=== PATIENT | male | born 1935 | race Caucasian/White ===

== ENCOUNTER 2016-07-02 08:39 | Inpatient (IN) | payer MEDICARE, OTHER ==
[~2016-07-02 08:39] MED LIST: ALDACTONE25 M1 PO; ALDACTONE25 MG PO; ALENDRONATE SOD70 MG PO; ALEVE220 M1 PO; ALEVE220 MG; ASPIR 8181 MG; ASPIRIN LOW STR81 MG PO; ASPIRIN81 M1 PO; AZATHIOPRINE50 MG PO; CALCIUM 600 +1 EAC2 PO; CALCIUM 600 MG1 EACH PO; CARVEDILOL6.25 MG PO; CENTRUM COMPLE1 EACH PO; CENTRUM SILVER1 TAB PO; COREG3.125 MG; COREG6.25 M1 PO; COUMADIN2.5 M1 PO; COUMADIN2.5 MG PO; FOSAMAX70 MG PO; IMURAN50 MG; IMURAN50 MG PO; LEVAQUIN750 MG PO; LISINOPRIL5 MG; LISINOPRIL5 MG PO; LOVENOX80 MG/0.8 SQ; NAPROXEN250 MG PO; NORCO 5/3251 TAB PO; OMEPRAZOLE20 M2 PO; OMEPRAZOLE20 MG; OMEPRAZOLE20 MG PO; PREDNISONE10 MG; PREDNISONE10 MG PO; PREDNISONE5 M1 PO; TUMS500 MG; TYLENOL325 MG PO; ZESTRIL5 M1 PO; ZETIA10 M1 PO; ZETIA10 MG; ZETIA10 MG PO
[2016-07-02 09:25] LABS: INR 2.7 INR (0.9-1.1); PROTHROMBIN TIME 32.3 SECONDS (9.0-13.6)
[2016-07-02 09:28] LABS: BASO % 0.4 % (0-2); EOSINOPHIL ABSOLUTE COUNT 0.2 tho/cmm (0.0-0.7); HCT-HEMATOCRIT 34.1 % (36.0-53.5); HGB-HEMOGLOBIN 11.3 gm/dl (13.5-17.0); IMMATURE GRANULOCYTES ABSOLUTE 0.07 tho/cmm (0-0.03); IMMATURE GRANULOCYTES PERCENT 1.3 % (0-0.3); LYMPH % 14.6 % (20-45); LYMPH ABSOLUTE COUNT 0.8 tho/cmm (0.8-4.5); MCH (MEAN CORPUSCULAR HGB) 34.6 pg (28.0-32.0); MCHC MEAN CORPUSCULAR HGB CONC 33.1 % (32.0-36.0); MCV (MEAN CELL VOLUME) 104.3 fl (82.0-96.0); MONO % 15.3 % (0-12); MONOCYTE ABSOLUTE COUNT 0.9 tho/cmm (0.0-1.2); NEUTROPHIL ABSOLUTE COUNT 3.6 tho/cmm (1.6-8.0); NEUTROPHIL-AUTOMATED 3.6 tho/cmm (1.6-8.0); NEUTROPHILS % 64.4 % (40-80); PLATELET COUNT 168 tho/cmm (150-450); RED BLOOD COUNT 3.27 mil/cmm (4.40-5.70); RED CELL DISTRIBUTION WIDTH 16.1 % (12.4-16.4); WHITE BLOOD COUNT 5.5 tho/cmm (4.0-10.0)
[2016-07-02 09:46] LABS: ALB/GLOB RATIO 0.8 (0.8-2.0); ALBUMIN 3.3 g/dl (3.5-5.0); ALKALINE PHOSPHATASE 55 U/L (33-138); ALT/SGPT 24 U/L (12-78); ANION GAP 16 mmol/L (0-20); AST/SGOT 28 U/L (10-40); BILIRUBIN,TOTAL 0.5 mg/dl (0.0-1.5); BLOOD UREA NITROGEN 20 mg/dl (6-24); CALCIUM 8.5 mg/dl (8.5-10.5); CARBON DIOXIDE-VENOUS 20 mmol/L (22-32); CHLORIDE 111 mmol/l (96-110); CREATININE 0.82 mg/dl (0.60-1.30); GLUCOSE 77 mg/dL (70-110); POTASSIUM 4.4 mmol/L (3.7-5.1); SODIUM 143 mmol/L (135-145); eGFR VALUE FOR BLACK >90 mL/Min
[2016-07-02 10:06] LABS: PROCALCITONIN 0.14 ng/ml (0.05-0.09)
[2016-07-02 10:07] LABS: URINE APPEARANCE CLEAR; URINE BILIRUBIN NEGATIVE (NEG); URINE BLOOD MODERATE (NEG); URINE COLOR YELLOW; URINE GLUCOSE (UA) NEGATIVE (NEG); URINE KETONE MODERATE (NEG); URINE LEUKOCYTE ESTERASE NEGATIVE (NEG); URINE NITRITE NEGATIVE (NEG); URINE PROTEIN MODERATE (NEG); URINE SPECIFIC GRAVITY 1.015 (1.003-1.030)
[2016-07-02 10:16] LABS: URINE EPITHELIAL CELLS 0 /[HPF] (0-10); URINE WBC RARE /[HPF] (0-5)
[2016-07-02 10:54] LABS: AMYLASE 85 U/L (20-90); LIPASE 187 U/L (73-393)
[2016-07-02 14:05] LABS: C-REACTIVE PROTEIN 8.3 mg/dl (0-0.9)
[2016-07-02 14:09] LABS: TSH-THYROID STIMULATING HORM. 0.79 uIU/ml (0.40-3.80)
[2016-07-03 07:00] LABS: INR 2.5 INR (0.9-1.1); PROTHROMBIN TIME 30.4 SECONDS (9.0-13.6)
[2016-07-03 07:05] LABS: BASO % 0.3 % (0-2); EOS % 1.4 % (0-7); EOSINOPHIL ABSOLUTE COUNT 0.1 tho/cmm (0.0-0.7); HCT-HEMATOCRIT 30.3 % (36.0-53.5); HGB-HEMOGLOBIN 10.1 gm/dl (13.5-17.0); IMMATURE GRANULOCYTES ABSOLUTE 0.07 tho/cmm (0-0.03); LYMPH % 27.1 % (20-45); MCH (MEAN CORPUSCULAR HGB) 34.1 pg (28.0-32.0); MCHC MEAN CORPUSCULAR HGB CONC 33.3 % (32.0-36.0); MCV (MEAN CELL VOLUME) 102.4 fl (82.0-96.0); MEAN PLATELET VOLUME 9.9 cmc (9.4-12.4); MONO % 11.5 % (0-12); MONOCYTE ABSOLUTE COUNT 0.4 tho/cmm (0.0-1.2); NEUTROPHIL ABSOLUTE COUNT 2.1 tho/cmm (1.6-8.0); NEUTROPHIL-AUTOMATED 2.1 tho/cmm (1.6-8.0); NEUTROPHILS % 57.7 % (40-80); PLATELET COUNT 142 tho/cmm (150-450); RED BLOOD COUNT 2.96 mil/cmm (4.40-5.70); WHITE BLOOD COUNT 3.6 tho/cmm (4.0-10.0)
[2016-07-03 07:06] LABS: ANION GAP 16 mmol/L (0-20); BLOOD UREA NITROGEN 16 mg/dl (6-24); CALCIUM 7.6 mg/dl (8.5-10.5); CARBON DIOXIDE-VENOUS 20 mmol/L (22-32); CHLORIDE 108 mmol/l (96-110); CREATININE 0.84 mg/dl (0.60-1.30); GLUCOSE 106 mg/dL (70-110); SODIUM 140 mmol/L (135-145); eGFR VALUE FOR BLACK >90 mL/Min
[2016-07-03 07:08] LABS: POTASSIUM 3.5 mmol/L (3.7-5.1)
[2016-07-03] MEDS ORDERED: COUMADIN5 M2 PO (16:25)
[2016-07-04 07:26] LABS: BASO % 0.5 % (0-2); EOS % 3.6 % (0-7); EOSINOPHIL ABSOLUTE COUNT 0.2 tho/cmm (0.0-0.7); HCT-HEMATOCRIT 35.1 % (36.0-53.5); HGB-HEMOGLOBIN 12.1 gm/dl (13.5-17.0); IMMATURE GRANULOCYTES ABSOLUTE 0.07 tho/cmm (0-0.03); IMMATURE GRANULOCYTES PERCENT 1.1 % (0-0.3); INR 2.2 INR (0.9-1.1); LYMPH % 27.4 % (20-45); LYMPH ABSOLUTE COUNT 1.7 tho/cmm (0.8-4.5); MCH (MEAN CORPUSCULAR HGB) 34.9 pg (28.0-32.0); MCHC MEAN CORPUSCULAR HGB CONC 34.5 % (32.0-36.0); MCV (MEAN CELL VOLUME) 101.2 fl (82.0-96.0); MEAN PLATELET VOLUME 9.6 cmc (9.4-12.4); MONO % 15.2 % (0-12); MONOCYTE ABSOLUTE COUNT 0.9 tho/cmm (0.0-1.2); NEUTROPHIL ABSOLUTE COUNT 3.2 tho/cmm (1.6-8.0); NEUTROPHIL-AUTOMATED 3.2 tho/cmm (1.6-8.0); NEUTROPHILS % 52.2 % (40-80); PLATELET COUNT 178 tho/cmm (150-450); PROTHROMBIN TIME 26.5 SECONDS (9.0-13.6); RED BLOOD COUNT 3.47 mil/cmm (4.40-5.70); RED CELL DISTRIBUTION WIDTH 15.9 % (12.4-16.4); WHITE BLOOD COUNT 6.2 tho/cmm (4.0-10.0)
[2016-07-05 06:30] LABS: INR 2.3 INR (0.9-1.1); PROTHROMBIN TIME 27.2 SECONDS (9.0-13.6)
[2016-07-05] MEDS ORDERED: ZITHROMAX250 M1 PO (09:28)
== END 2016-07-05 13:15 | disposition home health service (06) | DRG 194 ==
LOC: EDMED 08:39 → EMR2 11:36 → 5WE 13:10
PROVIDERS: Emergency Medicine; Family Medicine; Internal Medicine Cardiovascular Disease; ADMIT Hospitalist
DX: J12.2 Parainfluenza virus pneumonia (principal); I42.0 Dilated cardiomyopathy; D84.9 Immunodeficiency, unspecified; G72.41 Inclusion body myositis [IBM]; I10 Essential (primary) hypertension; Z86.711 Personal history of pulmonary embolism; Z86.718 Personal history of other venous thrombosis and embolism; Z79.01 Long term (current) use of anticoagulants; Z79.82 Long term (current) use of aspirin; Z79.52 Long term (current) use of systemic steroids; Z66 Do not resuscitate; I44.7 Left bundle-branch block, unspecified
CPT/HCPCS: J0456; J0780; J1720; J2543; J3370; J7030; J7050; J7500; J7512